=== PATIENT | female | born 1990 | race Caucasian/White ===

== ENCOUNTER 2017-10-13 19:22 | Inpatient (IN) | payer OTHER ==
[~2017-10-13] VITALS: Ht 162.6 cm; Wt 82.8 kg
[2017-10-13 20:37] LABS: HEMOGLOBIN 14.7 G/DL (11.9-15.5); MCH 33.5 PG (29.0-34.0); MCHC 36.8 G/DL (30.0-36.0); MCV 91.1 FL (83-99); NRBC (%) 0.2 /100 WBC (0-0); PLATELET COUNT 176 K/uL (156-360); RBC DIS.WIDTH-SD 50.2 % (39-53); RED BLOOD COUNT 4.39 M/uL (3.80-5.20); WHITE BLOOD COUNT 9.3 K/uL (4.1-10.2)
[2017-10-13 20:49] LABS: ALBUMIN 3.5 g/dL (3.2-4.8); CHLORIDE 91 mEq/L (99-109); SODIUM 134 mEq/L (136-147)
[2017-10-13 20:52] LABS: GLUCOSE 207 mg/dL (70-99); TOTAL PROTEIN 7.9 g/dL (6.4-8.3)
[2017-10-13 20:54] LABS: TOTAL BILIRUBIN 7.3 mg/dL (0.0-1.0)
[2017-10-13 20:55] LABS: ALKALINE PHOSPHATASE 386 IU/L (3-129)
[2017-10-13 20:56] LABS: CREATININE 0.9 mg/dL (0.6-1.3); GFR ESTIMATE (CALCULATED) > 59 mL/min/
[2017-10-13 20:57] LABS: AST (GOT) 241 IU/L (2-34); DIRECT BILIRUBIN 5.8 mg/dL (0.0-0.3); UREA NITROGEN (BUN) 17 mg/dL (9-23)
[2017-10-13 20:58] LABS: ALT (GPT) 126 IU/L (3-49)
[2017-10-13 20:59] LABS: LIPASE 372 U/L (1.0-51.0)
[2017-10-13 21:05] LABS: QUANTITATIVE HCG < 4.0 MIU/ML
[2017-10-13 23:46] LABS: AMYLASE 124 IU/L (1-118)
[2017-10-14] MEDS ORDERED: METOPROLOL TART25 MG PO (01:52)
[2017-10-14 04:49] LABS: INTER. NORMALIZED RATIO 1.2
[2017-10-14 04:51] LABS: APPEARANCE CLEAR ((CLEAR)); BILIRUBIN MODERATE; BLOOD NEGATIVE; COLOR AMBER ((YELLOW)); GLUCOSE (STRIP) NEGATIVE; KETONES NEGATIVE; LEUKOCYTES TRACE; NITRITE NEGATIVE; PROTEIN (STRIP) 100
[2017-10-14 04:52] LABS: PTT 33.3 SEC (25-37)
[2017-10-14 05:00] VITALS: BP 148/106
[2017-10-14 05:07] LABS: ICTOTEST POSITIVE
[2017-10-14 05:16] VITALS: BP 147/90
[2017-10-14 05:18] LABS: RED BLOOD CELLS 0-5 /HPF (0-5)
[2017-10-14 05:19] LABS: BACTERIA RARE /HPF; EPITHELIAL CELLS 1+ /HPF; MUCUS 1+ /LPF; UCUL ADDED? NO; WHITE BLOOD CELLS 0-5 /HPF (0-5)
[2017-10-14 05:58] LABS: HEMATOCRIT 34.1 % (36.0-46.0); MCH 33.6 PG (29.0-34.0); MCHC 36.7 G/DL (30.0-36.0); MCV 91.7 FL (83-99); PLATELET COUNT 149 K/uL (156-360); RBC DIS.WIDTH-CV 15.3 % (11.8-14.6); RBC DIS.WIDTH-SD 51.2 % (39-53); RED BLOOD COUNT 3.72 M/uL (3.80-5.20); WHITE BLOOD COUNT 8.3 K/uL (4.1-10.2)
[2017-10-14 06:00] LABS: HEMOGLOBIN 12.5 G/DL (11.9-15.5)
[2017-10-14 07:07] LABS: MAGNESIUM 1.5 mg/dl (1.3-2.7)
[2017-10-14] MEDS ORDERED: birth control (07:38)
[2017-10-14 08:00] VITALS: BP 144/96
[2017-10-14 10:29] LABS: HEPATITIS B SURFACE ANTIGEN Nonreactive
[2017-10-14 10:30] LABS: ANTI-HEPATITIS A VIRUS (IGM) Nonreactive
[2017-10-14 10:31] LABS: ANTI-HEPATITIS B CORE (IGM) Nonreactive
[2017-10-14 10:36] LABS: HEPATITIS C ANTIBODY REACTIVE
[2017-10-14 13:06] LABS: ALBUMIN 3.3 G/DL (3.2-4.8); ALKALINE PHOSPHATASE 339 IU/L (3-129); ALT (GPT) 87 IU/L (3-49); AST (GOT) 187 IU/L (2-34); CHLORIDE 98 MEQ/L (99-109); CREATININE 0.6 MG/DL (0.6-1.3); GFR ESTIMATE (CALCULATED) > 59 mL/min/; GLUCOSE 141 mg/dL (70-99); TOTAL BILIRUBIN 8.4 MG/DL (0.0-1.0); TOTAL PROTEIN 6.9 G/DL (6.4-8.3); UREA NITROGEN (BUN) 17 mg/dL (9-23)
[2017-10-14 13:15] LABS: POTASSIUM 3.7 MEQ/L (3.7-5.4); SODIUM 142 MEQ/L (136-147)
[2017-10-14 15:08] VITALS: BP 155/109
[2017-10-14 15:56] LABS: CHLORIDE 97 MEQ/L (99-109); POTASSIUM 3.6 MEQ/L (3.7-5.4); SODIUM 135 MEQ/L (136-147)
[2017-10-14 16:01] LABS: CREATININE 0.7 MG/DL (0.6-1.3); GFR ESTIMATE (CALCULATED) > 59 mL/min/; GLUCOSE 124 mg/dL (70-99); UREA NITROGEN (BUN) 17 mg/dL (9-23)
[2017-10-14 20:18] VITALS: BP 161/98
[2017-10-14 23:38] VITALS: BP 153/93
[2017-10-15 03:38] VITALS: BP 139/95
[2017-10-15 06:27] LABS: ALBUMIN 2.7 G/DL (3.2-4.8); ALT (GPT) 65 IU/L (3-49); AST (GOT) 117 IU/L (2-34); DIRECT BILIRUBIN 6.1 mg/dL (0.0-0.3); LIPASE 130 U/L (1.0-51.0); TOTAL BILIRUBIN 9.3 MG/DL (0.0-1.0)
[2017-10-15 06:28] LABS: ALKALINE PHOSPHATASE 232 IU/L (3-129); TOTAL PROTEIN 5.7 G/DL (6.4-8.3)
[2017-10-15 07:39] VITALS: BP 145/95
[2017-10-15 10:17] LABS: HEMOGLOBIN A1c (GLYCOHEMOGLOB) 5.6 % (Below 5.7)
[2017-10-15 16:23] VITALS: BP 169/116
[2017-10-15 16:35] VITALS: BP 147/98
[2017-10-15 23:49] VITALS: BP 149/102
[2017-10-16 06:43] LABS: ALBUMIN 2.6 G/DL (3.2-4.8); ALKALINE PHOSPHATASE 197 IU/L (3-129); ALT (GPT) 73 IU/L (3-49); AST (GOT) 142 IU/L (2-34); CREATININE 0.7 MG/DL (0.6-1.3); GFR ESTIMATE (CALCULATED) > 59 mL/min/; GLUCOSE 104 mg/dL (70-99); SODIUM 140 MEQ/L (136-147); TOTAL BILIRUBIN 10.3 MG/DL (0.0-1.0); TOTAL PROTEIN 5.3 G/DL (6.4-8.3); UREA NITROGEN (BUN) 14 mg/dL (9-23)
[2017-10-16 06:48] LABS: CHLORIDE 110 MEQ/L (99-109); MAGNESIUM 2.1 mg/dl (1.3-2.7); POTASSIUM 4.6 MEQ/L (3.7-5.4)
[2017-10-16 07:26] LABS: BASOPHIL (%) 0.2 % (0-1); EOSINOPHIL (%) 0.1 % (0-5); HEMATOCRIT 31.7 % (36.0-46.0); LYMPHOCYTE (%) 12.1 % (15-42); LYMPHOCYTE COUNT 1.1 K/uL (1.0-2.8); MCH 32.3 PG (29.0-34.0); MCHC 32.2 G/DL (30.0-36.0); MONOCYTE (%) 8.3 % (3-12); MONOCYTE COUNT 0.7 K/uL (0-0.8); NEUTROPHIL (%) 75.3 % (45-76); NEUTROPHIL COUNT 6.7 K/uL (1.8-6.4); NRBC (%) 0.6 /100 WBC (0-0); PLATELET COUNT 155 K/uL (156-360); RBC DIS.WIDTH-CV 15.9 % (11.8-14.6); RBC DIS.WIDTH-SD 58.5 % (39-53); RED BLOOD COUNT 3.16 M/uL (3.80-5.20); WHITE BLOOD COUNT 8.9 K/uL (4.1-10.2)
[2017-10-16 07:30] LABS: HEMOGLOBIN 10.2 G/DL (11.9-15.5); MCV 100.3 FL (83-99)
[2017-10-16 07:34] VITALS: BP 147/103
[2017-10-16 15:30] VITALS: BP 142/92
[2017-10-16 19:39] VITALS: BP 135/84
[2017-10-16 23:30] VITALS: BP 134/65
[2017-10-17 04:14] VITALS: BP 137/92
[2017-10-17 06:39] LABS: BASOPHIL (%) 0.3 % (0-1); EOSINOPHIL (%) 0.5 % (0-5); EOSINOPHIL COUNT 0.1 K/uL (0-0.3); HEMOGLOBIN 9.8 G/DL (11.9-15.5); IMMATURE GRANULOCYTE (%) 4.3 % (0.0-0.7); LYMPHOCYTE (%) 21.6 % (15-42); LYMPHOCYTE COUNT 2.8 K/uL (1.0-2.8); MCH 33.3 PG (29.0-34.0); MCHC 32.7 G/DL (30.0-36.0); MONOCYTE (%) 6.5 % (3-12); MONOCYTE COUNT 0.9 K/uL (0-0.8); NEUTROPHIL (%) 66.8 % (45-76); NEUTROPHIL COUNT 8.8 K/uL (1.8-6.4); NRBC (%) 0.5 /100 WBC (0-0); PLATELET COUNT 173 K/uL (156-360); RBC DIS.WIDTH-CV 15.8 % (11.8-14.6); RED BLOOD COUNT 2.94 M/uL (3.80-5.20); WHITE BLOOD COUNT 13.2 K/uL (4.1-10.2)
[2017-10-17 07:08] LABS: ALBUMIN 2.4 G/DL (3.2-4.8); ALKALINE PHOSPHATASE 193 IU/L (3-129); ALT (GPT) 104 IU/L (3-49); AST (GOT) 204 IU/L (2-34); CHLORIDE 108 MEQ/L (99-109); CREATININE 0.7 MG/DL (0.6-1.3); GFR ESTIMATE (CALCULATED) > 59 mL/min/; GLUCOSE 77 mg/dL (70-99); POTASSIUM 4.4 MEQ/L (3.7-5.4); SODIUM 138 MEQ/L (136-147); TOTAL BILIRUBIN 10.6 MG/DL (0.0-1.0); UREA NITROGEN (BUN) 12 mg/dL (9-23)
[2017-10-17 08:37] VITALS: BP 168/113
[2017-10-17 12:18] VITALS: BP 162/99
[2017-10-17 16:39] VITALS: BP 168/94
[2017-10-17 20:00] VITALS: BP 153/104
[2017-10-17 23:36] VITALS: BP 155/92
[2017-10-18] VITALS (34 sets, daily range): BP systolic 88–224; BP diastolic 49–156
[2017-10-18 05:08] LABS: HEMATOCRIT 22.7 % (36.0-46.0); MCH 34.1 PG (29.0-34.0); MCHC 32.6 G/DL (30.0-36.0); MCV 104.6 FL (83-99); NRBC (%) 0.3 /100 WBC (0-0); PLATELET COUNT 198 K/uL (156-360); RBC DIS.WIDTH-CV 15.4 % (11.8-14.6); RBC DIS.WIDTH-SD 57.7 % (39-53); WHITE BLOOD COUNT 20.9 K/uL (4.1-10.2)
[2017-10-18 05:10] LABS: HEMOGLOBIN 7.4 G/DL (11.9-15.5); RED BLOOD COUNT 2.17 M/uL (3.80-5.20)
[2017-10-18 05:14] LABS: ALBUMIN 2.3 g/dL (3.2-4.8)
[2017-10-18 05:15] LABS: POTASSIUM 4.6 mEq/L (3.7-5.4); SODIUM 141 mEq/L (136-147)
[2017-10-18 05:19] LABS: TOTAL BILIRUBIN 8.7 mg/dL (0.0-1.0)
[2017-10-18 05:21] LABS: CREATININE 0.6 mg/dL (0.6-1.3); GFR ESTIMATE (CALCULATED) > 59 mL/min/
[2017-10-18 05:22] LABS: UREA NITROGEN (BUN) 20 mg/dL (9-23)
[2017-10-18 05:23] LABS: ALT (GPT) 96 IU/L (3-49)
[2017-10-18 05:30] LABS: ALKALINE PHOSPHATASE 215 IU/L (3-129); AST (GOT) 127 IU/L (2-34); CHLORIDE 113 mEq/L (99-109); GLUCOSE 144 mg/dL (70-99); TOTAL PROTEIN 4.5 g/dL (6.4-8.3)
[2017-10-18 05:38] LABS: INTER. NORMALIZED RATIO 1.2
[2017-10-18 05:41] LABS: PTT 25.8 SEC (25-37)
[2017-10-18 09:27] LABS: HEMATOCRIT 19.9 % (36.0-46.0); HEMOGLOBIN 6.2 G/DL (11.9-15.5); MCH 33.9 PG (29.0-34.0); MCHC 31.2 G/DL (30.0-36.0); MCV 108.7 FL (83-99); NRBC (%) 0.3 /100 WBC (0-0); PLATELET COUNT 211 K/uL (156-360); RBC DIS.WIDTH-CV 15.9 % (11.8-14.6); RBC DIS.WIDTH-SD 59.7 % (39-53); RED BLOOD COUNT 1.83 M/uL (3.80-5.20); WHITE BLOOD COUNT 27.5 K/uL (4.1-10.2)
[2017-10-18 09:29] LABS: LIPASE 56 U/L (1.0-51.0)
[2017-10-18 09:35] LABS: INTER. NORMALIZED RATIO 1.3
[2017-10-18 09:52] LABS: PTT 16.6 SEC (25-37)
[2017-10-18 09:54] LABS: ALBUMIN 2.2 G/DL (3.2-4.8); ALKALINE PHOSPHATASE 167 IU/L (3-129); ALT (GPT) 73 IU/L (3-49); AST (GOT) 98 IU/L (2-34); CHLORIDE 109 MEQ/L (99-109); CREATININE 0.6 MG/DL (0.6-1.3); DIRECT BILIRUBIN 6.6 mg/dL (0.0-0.3); GFR ESTIMATE (CALCULATED) > 59 mL/min/; GLUCOSE 143 mg/dL (70-99); POTASSIUM 4.6 MEQ/L (3.7-5.4); SODIUM 139 MEQ/L (136-147); TOTAL BILIRUBIN 9.6 MG/DL (0.0-1.0); TOTAL PROTEIN 4.3 G/DL (6.4-8.3); UREA NITROGEN (BUN) 24 mg/dL (9-23)
[2017-10-18 13:13] LABS: BASE EXCESS -10.1 mEq/L (-3 to +3); COMMENTS - BLOOD GASES +C; PCO2 26 mm Hg (35-45); PO2 116 mm Hg (80-100); SITE LR; pH 7.34 (7.35-7.45)
[2017-10-18 13:14] LABS: DEVICE 980; FI02 30 %; INSPIRATION TIME 0.8 seconds; MECHANICAL RATE 20 resp/min; MODE ACVC+; PEEP 5 CM/H20; TIDAL VOLUME 400 ML; TOTAL RESP RATE 32 resp/min
[2017-10-18 14:51] LABS: HIGH-SENS C-REACTIVE PROTEIN 1.92 MG/DL (0.02-0.20)
[2017-10-18 19:59] LABS: BASOPHIL (%) 0.1 % (0-1); EOSINOPHIL (%) 0 % (0-5); HEMATOCRIT 25.6 % (36.0-46.0); IMMATURE GRANULOCYTE (%) 2.9 % (0.0-0.7); LYMPHOCYTE (%) 8.6 % (15-42); LYMPHOCYTE COUNT 2.1 K/uL (1.0-2.8); MCHC 32.8 G/DL (30.0-36.0); MONOCYTE (%) 5.9 % (3-12); MONOCYTE COUNT 1.4 K/uL (0-0.8); NEUTROPHIL (%) 82.5 % (45-76); NEUTROPHIL COUNT 19.9 K/uL (1.8-6.4); RBC DIS.WIDTH-CV 20.9 % (11.8-14.6); RBC DIS.WIDTH-SD 67.5 % (39-53); WHITE BLOOD COUNT 24.1 K/uL (4.1-10.2)
[2017-10-18 20:12] LABS: ALBUMIN 2.2 G/DL (3.2-4.8); ALT (GPT) 69 IU/L (3-49); AST (GOT) 104 IU/L (2-34); CHLORIDE 114 MEQ/L (99-109); CREATININE 0.5 MG/DL (0.6-1.3); GFR ESTIMATE (CALCULATED) > 59 mL/min/; MAGNESIUM 1.8 mg/dl (1.3-2.7); PHOSPHORUS 2.5 mg/dL (2.5-4.9); POTASSIUM 4.4 MEQ/L (3.7-5.4); SODIUM 143 MEQ/L (136-147); TOTAL BILIRUBIN 9.7 MG/DL (0.0-1.0); UREA NITROGEN (BUN) 25 mg/dL (9-23)
[2017-10-18 20:13] LABS: ALKALINE PHOSPHATASE 123 IU/L (3-129); GLUCOSE 106 mg/dL (70-99)
[2017-10-18 20:17] LABS: ANISOCYTOSIS 2+; MACROCYTES 1+; MICROCYTOSIS 1+; PLAT.SUFFICIENCY ADEQUATE; POLYCHROMASIA 1+
[2017-10-18 20:39] LABS: HEMOGLOBIN 8.4 G/DL (11.9-15.5); MCV 94.5 FL (83-99); PLATELET COUNT 140 K/uL (156-360); RED BLOOD COUNT 2.71 M/uL (3.80-5.20)
[2017-10-19] VITALS (25 sets, daily range): BP systolic 118–166; BP diastolic 78–115
[2017-10-19 11:26] LABS: STOOL OCCULT BLD 1ST SPECIMEN POSITIVE
[2017-10-19 11:40] LABS: BASOPHIL (%) 0.2 % (0-1); EOSINOPHIL (%) 0 % (0-5); HEMATOCRIT 23.5 % (36.0-46.0); HEMOGLOBIN 7.7 G/DL (11.9-15.5); IMMATURE GRANULOCYTE (%) 3.8 % (0.0-0.7); LYMPHOCYTE (%) 7.2 % (15-42); LYMPHOCYTE COUNT 1.4 K/uL (1.0-2.8); MCH 30.6 PG (29.0-34.0); MCHC 32.8 G/DL (30.0-36.0); MCV 93.3 FL (83-99); MONOCYTE (%) 4.1 % (3-12); MONOCYTE COUNT 0.8 K/uL (0-0.8); NEUTROPHIL (%) 84.7 % (45-76); NEUTROPHIL COUNT 16.4 K/uL (1.8-6.4); NRBC (%) 0.3 /100 WBC (0-0); PLATELET COUNT 175 K/uL (156-360); RBC DIS.WIDTH-SD 69.9 % (39-53); RED BLOOD COUNT 2.52 M/uL (3.80-5.20); WHITE BLOOD COUNT 19.4 K/uL (4.1-10.2)
[2017-10-19 11:46] LABS: INTER. NORMALIZED RATIO 1.1
[2017-10-19 11:54] LABS: FIBRINOGEN 277 mg/dL (150-450); PTT 27.2 SEC (25-37)
[2017-10-19 12:10] LABS: ALBUMIN 2.4 G/DL (3.2-4.8); ALKALINE PHOSPHATASE 135 IU/L (3-129); ALT (GPT) 69 IU/L (3-49); AST (GOT) 103 IU/L (2-34); CHLORIDE 115 MEQ/L (99-109); CREATININE 0.5 MG/DL (0.6-1.3); DIRECT BILIRUBIN 6.6 mg/dL (0.0-0.3); GFR ESTIMATE (CALCULATED) > 59 mL/min/; GLUCOSE 121 mg/dL (70-99); POTASSIUM 4.6 MEQ/L (3.7-5.4); SODIUM 143 MEQ/L (136-147); TOTAL PROTEIN 4.4 G/DL (6.4-8.3); UREA NITROGEN (BUN) 17 mg/dL (9-23)
[2017-10-20] VITALS (24 sets, daily range): BP systolic 118–166; BP diastolic 83–115
[2017-10-20 05:56] LABS: BASOPHIL (%) 0.2 % (0-1); EOSINOPHIL (%) 0 % (0-5); HEMOGLOBIN 7.8 G/DL (11.9-15.5); IMMATURE GRANULOCYTE (%) 4.3 % (0.0-0.7); LYMPHOCYTE COUNT 1.2 K/uL (1.0-2.8); MCH 30.5 PG (29.0-34.0); MCHC 31.2 G/DL (30.0-36.0); MONOCYTE (%) 6.4 % (3-12); MONOCYTE COUNT 1.1 K/uL (0-0.8); NEUTROPHIL (%) 82.1 % (45-76); NEUTROPHIL COUNT 13.6 K/uL (1.8-6.4); NRBC (%) 0.3 /100 WBC (0-0); RBC DIS.WIDTH-CV 22.8 % (11.8-14.6); RBC DIS.WIDTH-SD 77.2 % (39-53); RED BLOOD COUNT 2.56 M/uL (3.80-5.20); WHITE BLOOD COUNT 16.6 K/uL (4.1-10.2)
[2017-10-20 06:01] LABS: MCV 97.7 FL (83-99)
[2017-10-20 06:12] LABS: ALBUMIN 2.5 G/DL (3.2-4.8); ALKALINE PHOSPHATASE 150 IU/L (3-129); ALT (GPT) 86 IU/L (3-49); AST (GOT) 133 IU/L (2-34); CHLORIDE 112 MEQ/L (99-109); CREATININE 0.5 MG/DL (0.6-1.3); GFR ESTIMATE (CALCULATED) > 59 mL/min/; GLUCOSE 176 mg/dL (70-99); POTASSIUM 4.8 MEQ/L (3.7-5.4); SODIUM 143 MEQ/L (136-147); TOTAL PROTEIN 4.7 G/DL (6.4-8.3); UREA NITROGEN (BUN) 16 mg/dL (9-23)
[2017-10-20 06:14] LABS: TOTAL BILIRUBIN 7.4 MG/DL (0.0-1.0)
[2017-10-20 06:48] LABS: ABS NEUTROPHIL COUNT 15.2; ANISOCYTOSIS 1+; BAND NEUTROPHILS 0.9 % (0-8.0); BURR CELLS 1+; EOSINOPHIL ABS CT 0; LYMPHOCYTES 4.4 % (15.0-45.0); MACROCYTES 1+; METAMYELOCYTES 1.7 %; MONOCYTES 2.6 % (0-9.0); NUCLEATED RBC'S 0.9; PLAT.SUFFICIENCY DECREASED; PLATELET COUNT 127 K/uL (156-360); POIKILOCYTOSIS 1+; POLYCHROMASIA 1+; SEG.NEUTROPHILS 90.4 % (46.0-76.0)
[2017-10-20 08:04] LABS: PTT 23.9 SEC (25-37)
[2017-10-21] VITALS (13 sets, daily range): BP systolic 127–168; BP diastolic 79–126
[2017-10-21 05:58] LABS: BASOPHIL (%) 0.2 % (0-1); EOSINOPHIL (%) 0.6 % (0-5); EOSINOPHIL COUNT 0.1 K/uL (0-0.3); HEMATOCRIT 25.1 % (36.0-46.0); IMMATURE GRANULOCYTE (%) 3.6 % (0.0-0.7); LYMPHOCYTE (%) 23.2 % (15-42); LYMPHOCYTE COUNT 2.9 K/uL (1.0-2.8); MCH 30.9 PG (29.0-34.0); MCHC 31.9 G/DL (30.0-36.0); MCV 96.9 FL (83-99); MONOCYTE (%) 8.1 % (3-12); NEUTROPHIL (%) 64.3 % (45-76); NRBC (%) 0.7 /100 WBC (0-0); PTT 24.1 SEC (25-37); RBC DIS.WIDTH-CV 22.3 % (11.8-14.6); RBC DIS.WIDTH-SD 73.8 % (39-53); RED BLOOD COUNT 2.59 M/uL (3.80-5.20); WHITE BLOOD COUNT 12.4 K/uL (4.1-10.2)
[2017-10-21 06:13] LABS: PLATELET COUNT 270 K/uL (156-360)
[2017-10-21 06:16] LABS: ALBUMIN 2.4 G/DL (3.2-4.8); ALKALINE PHOSPHATASE 187 IU/L (3-129); ALT (GPT) 140 IU/L (3-49); CHLORIDE 110 MEQ/L (99-109); CREATININE 0.6 MG/DL (0.6-1.3); DIRECT BILIRUBIN 4.1 mg/dL (0.0-0.3); GFR ESTIMATE (CALCULATED) > 59 mL/min/; MAGNESIUM 1.8 mg/dl (1.3-2.7); SODIUM 142 MEQ/L (136-147); TOTAL BILIRUBIN 6.1 MG/DL (0.0-1.0); TOTAL PROTEIN 4.7 G/DL (6.4-8.3); UREA NITROGEN (BUN) 16 mg/dL (9-23)
[2017-10-21 06:25] LABS: AST (GOT) 261 IU/L (2-34); GLUCOSE 97 mg/dL (70-99)
[2017-10-22 03:33] VITALS: BP 162/84
[2017-10-22 05:51] LABS: ALBUMIN 2.6 G/DL (3.2-4.8); ALKALINE PHOSPHATASE 202 IU/L (3-129); ALT (GPT) 131 IU/L (3-49); AST (GOT) 230 IU/L (2-34); DIRECT BILIRUBIN 3.7 mg/dL (0.0-0.3); TOTAL BILIRUBIN 6.2 MG/DL (0.0-1.0); TOTAL PROTEIN 4.8 G/DL (6.4-8.3)
[2017-10-22 07:53] VITALS: BP 168/94
[2017-10-22 09:53] LABS: HEMATOCRIT 25.4 % (36.0-46.0); HEMOGLOBIN 8.2 G/DL (11.9-15.5); MCH 31.3 PG (29.0-34.0); MCHC 32.3 G/DL (30.0-36.0); MCV 96.9 FL (83-99); NRBC (%) 0.5 /100 WBC (0-0); PLATELET COUNT 302 K/uL (156-360); RBC DIS.WIDTH-CV 21.2 % (11.8-14.6); RBC DIS.WIDTH-SD 70.1 % (39-53); RED BLOOD COUNT 2.62 M/uL (3.80-5.20); WHITE BLOOD COUNT 11.5 K/uL (4.1-10.2)
[2017-10-22 10:23] LABS: ALBUMIN 2.5 G/DL (3.2-4.8); ALKALINE PHOSPHATASE 191 IU/L (3-129); ALT (GPT) 125 IU/L (3-49); AST (GOT) 227 IU/L (2-34); CHLORIDE 101 MEQ/L (99-109); CREATININE 0.6 MG/DL (0.6-1.3); GFR ESTIMATE (CALCULATED) > 59 mL/min/; POTASSIUM 3.6 MEQ/L (3.7-5.4); SODIUM 140 MEQ/L (136-147); TOTAL BILIRUBIN 6.4 MG/DL (0.0-1.0); TOTAL PROTEIN 4.7 G/DL (6.4-8.3); UREA NITROGEN (BUN) 8 mg/dL (9-23)
[2017-10-22 10:25] LABS: GLUCOSE 147 mg/dL (70-99)
[2017-10-22 16:09] VITALS: BP 155/98
[2017-10-22 23:53] VITALS: BP 178/122
[2017-10-23 00:07] VITALS: BP 164/94
[2017-10-23 06:38] LABS: HEMATOCRIT 24.7 % (36.0-46.0); HEMOGLOBIN 8.2 G/DL (11.9-15.5); MCH 32.2 PG (29.0-34.0); MCHC 33.2 G/DL (30.0-36.0); MCV 96.9 FL (83-99); NRBC (%) 0.8 /100 WBC (0-0); PLATELET COUNT 337 K/uL (156-360); RBC DIS.WIDTH-CV 21.2 % (11.8-14.6); RBC DIS.WIDTH-SD 73.2 % (39-53); RED BLOOD COUNT 2.55 M/uL (3.80-5.20); WHITE BLOOD COUNT 14.3 K/uL (4.1-10.2)
[2017-10-23 07:55] VITALS: BP 158/110
[2017-10-23] MEDS ORDERED: CEPHALEXIN500 MG PO (10:48)
[2017-10-23] MEDS ORDERED: METOPROLOL TART25 MG PO (10:48)
== END 2017-10-23 12:27 | disposition home or self-care (01) | DRG 417 ==
LOC: EME 19:22 → EDOF 10-14 02:38 → 4SOUTH 10-14 02:38 → CANRESERV 10-14 02:42 → ENRESERV 10-14 02:42 → 4SOUTH 10-14 04:47 → ENRESERV 10-18 08:45 → 4SOUTH 10-18 08:56 → ENRESERV 10-18 08:58 → 4WEST 10-18 09:29 → ENRESERV 10-21 06:41 → 4WEST 10-21 08:13 → 3EAST 10-21 09:24
PROVIDERS: Hospitalist; Internal Medicine; Internal Medicine Critical Care Medicine; Surgery
PROC: 0DJ08ZZ Inspection of Upper Intestinal Tract, Via Natural or Artificial Opening Endoscopic (ICD-10-PCS; principal; 2017-10-15)
PROC: 0FC98ZZ Extirpation of Matter from Common Bile Duct, Via Natural or Artificial Opening Endoscopic (ICD-10-PCS; principal; 2017-10-15)
PROC: 0FT44ZZ Resection of Gallbladder, Percutaneous Endoscopic Approach (ICD-10-PCS; 2017-10-16)
PROC: 30233K1 Transfusion of Nonautologous Frozen Plasma into Peripheral Vein, Percutaneous Approach (ICD-10-PCS; 2017-10-18)
PROC: 02H633Z Insertion of Infusion Device into Right Atrium, Percutaneous Approach (ICD-10-PCS; 2017-10-18)
PROC: 30233N1 Transfusion of Nonautologous Red Blood Cells into Peripheral Vein, Percutaneous Approach (ICD-10-PCS; 2017-10-18)
PROC: 0BH17EZ Insertion of Endotracheal Airway into Trachea, Via Natural or Artificial Opening (ICD-10-PCS; 2017-10-18)
PROC: 0CJS8ZZ Inspection of Larynx, Via Natural or Artificial Opening Endoscopic (ICD-10-PCS; 2017-10-18)
PROC: 2Y41X5Z Packing of Nasal Region using Packing Material (ICD-10-PCS; 2017-10-18)
PROC: 5A1945Z Respiratory Ventilation, 24-96 Consecutive Hours (ICD-10-PCS; 2017-10-18)
DX: K70.11 Alcoholic hepatitis with ascites (principal); K85.10 Biliary acute pancreatitis without necrosis or infection; A41.9 Sepsis, unspecified organism; E87.2 Acidosis; J98.11 Atelectasis; R57.9 Shock, unspecified; K76.0 Fatty (change of) liver, not elsewhere classified; B19.20 Unspecified viral hepatitis C without hepatic coma; D62 Acute posthemorrhagic anemia; R04.0 Epistaxis; F10.239 Alcohol dependence with withdrawal, unspecified; E87.6 Hypokalemia; F17.210 Nicotine dependence, cigarettes, uncomplicated; G89.29 Other chronic pain; I10 Essential (primary) hypertension; E66.9 Obesity, unspecified; Z68.31 Body mass index [BMI] 31.0-31.9, adult; D68.9 Coagulation defect, unspecified; K81.2 Acute cholecystitis with chronic cholecystitis
CPT/HCPCS: 36600; 70486; 71045; 74018; 74176; 74177; 74183; 74330; 78227; 80048; 80048 91; 80053; 80074; 80076; 81003; 82150; 82248; 82272; 82803; 82948; 83036; 83605; 83690; 83735; 84100; 84145 90; 84702; 85002; 85025; 85027; 85384; 85610; 85730; 86141; 86850; 86900; 86901; 86920; 87070; 87075; 87077; 87081; 87086; 87147; 87186; 87205; 87641; 88304; 93005; 94002; 94003; 99281; 99285; A9537; C1726; C1751; C1753; C1757; C1769; J0330; J0690; J1100; J1170; J1335; J1644; J1885; J1940; J2060; J2250; J2270; J2405; J2543; J2710; J2765; J2805; J2920; J3010; J3370; J3411; J3475; J7030; J7042; J7050; P9016; P9017; S0020; S0028